=== PATIENT | male | born 1985 | race Caucasian/White ===

== ENCOUNTER 2021-01-12 09:05 | Outpatient (CLI) | payer BC, SELFPAY ==
--- NOTE | 2021-02-01 02:08 | WPDHOMESLEEP ---
Sleep Study - Home Unattended Date of Study: 01/12/21 Ordering Provider: Annia Pablo, DENTAL SECRETARY Interpreting Provider: Nancie Segundo MD Home Sleep Study Type: Apnea Link Air Height: 1.88 m Weight: 109.769 kg Body Mass Index: 31.0 Neck Circumference (inches): 16 [place]: 5 Reason for Sleep Study Hypersomnolence Sleep History Pillo Gibbs II is a 35 year old man with who snores loudly and gasps for air at night. He occasionally awakens from sleep feeling short of breath. He rarely awakens at night with heartburn, belching or coughing. He frequently snores and it is loud enough that others complain about it. He rarely has trouble sleep with a cold. He occasionally gasp for breath at night. He rarely sweats excessively at night or notices his heart pounding or beating irregularly night. He rarely falls asleep during the day, however never falls asleep involuntarily or while driving. He does not have loss of muscle tone with strong emotion. He occasionally has daytime difficulties due to excessive sleepiness. He does not feel paralyzed on waking or falling asleep. He rarely has vivid dreamlike scenes upon awakening or going to sleep. He is never afraid to go to sleep. He does not have nightmares. He occasionally remembers his dreams. He occasionally has racing thoughts. He rarely feels sad or depressed. He occasionally has anxiety. He rarely has muscular tension. He does not notice parts of his body jerking. He rarely kicks at night, rarely has crawling and aching feelings in his legs, rarely has any kind of leg pain at night. He occasionally has morning jaw pain. He does not grind his teeth during sleep. He rarely is bothered by pain during the day, rarely awakens with pain at night, rarely wakes up feeling stiff in the morning with sore achy muscles or pain in the spine. Normal bedtime is 10:00 p.m. falling asleep within 5-10 minutes waking 1-2 times at night to urinate or reposition and return to sleep. It takes about 5-10 minutes to return to sleep. He wakes the morning between 530 and 7:30 a.m.. His weekend schedule is similar, going to bed by 10:30 p.m. and waking by 8:00 a.m.. He estimates getting 6-8 hours of sleep at night. he does not take naps in the afternoon or evening. A short nap baby refreshing. He is drowsy in the morning for 1 hour or longer. He feels better in the evening compared to other times of day. Habits: Tobacco: never smoker. Caffeine: 1-2 a day. Alcohol: 1-4 per month. No recreational drugs. [facility] Past Medical History Medical History (Updated 02/01/21 @ 02:19 by Nancie Segundo MD) Acid reflux Anxiety Hypertension Rhinitis Surgical History Surgical History (Updated 02/01/21 @ 02:15 by Nancie Segundo MD) History of hernia surgery Social History Social History (Updated 02/01/21 @ 02:15 by Nancie Segundo MD) Smoking status: Never smoker Drinks per week: 1 Alcohol use details: 1-4 drinks a month Substance use: never Substance use type: does not use Medications Medications: lisinopril, bupropion, omeprazole, sertraline, fluticasone, Claritin Sleep Procedure This test was performed using 4 channel monitoring including respiratory effort channel, snoring channel, heart rate channel, and oxygen saturation channel. This study was scored using [facility] guidelines. Sleep Architecture Not applicable for home sleep test. Respiratory Analysis The recording duration is 8 hours 57 minutes. Evaluation duration 8 hours 45 minutes. Apnea-hypopnea index is 4.2 normal. He had 10 apneas. He had 4 obstructive apneas, 40% of the total, 6 central apnea 60% of the total, 27 hypopneas, no evidence of Lew-Sandoval respirations. Oximetry Data Oxygen desaturation index is 3.3. Average saturation normal 96%. Lowest desaturation 92%. There were 29 desaturations. No time with was spent below 88%. Snoring Profile Snoring was minimal 132 episodes. Cardiac Prof
[2021-02-01 02:24] VITALS: BMI 31.0
== END 2021-01-13 13:55 | disposition home or self-care (01) ==
LOC: ANHCSM 09:10
PROVIDERS: Visit Provider Family Medicine
DX: G47.10 Hypersomnia, unspecified (principal); R06.83 Snoring; Z68.31 Body mass index [BMI] 31.0-31.9, adult
CPT/HCPCS: 95806

== ENCOUNTER 2022-07-05 16:43 | Emergency (ER) | payer BC, SELFPAY ==
[2022-07-05 17:15] VITALS: BP 149/94; PULSE 99; RESP 20; TEMP 36.3; O2SAT 100
--- NOTE | 2022-07-05 17:22 | ED.URI ---
HPI - URI/Sore Throat General Chief Complaint: Upper Respiratory Infection Stated Complaint: sorethroat,neck pain Time Seen by Provider: 07/05/22 17:22 Source: patient Mode of arrival: ambulatory Limitations: no limitations History of Present Illness HPI Narrative: 37-year-old male presents with complaint of sore throat, posterior neck pain, fatigue, headache for 2-3 days. Afebrile. Denies nausea vomiting diarrhea. All systems reviewed and negative except as noted above. Related Data Home Medications Medication Instructions Recorded Confirmed bupropion HCl 300 mg 24 hr tablet, 300 mg PO DAILY 07/05/22 07/05/22 extended release lisinopril 10 mg tablet 10 mg PO DAILY 07/05/22 07/05/22 losartan 50 mg tablet 50 mg PO DAILY 07/05/22 07/05/22 omeprazole 20 mg capsule,delayed 20 mg PO DAILY 07/05/22 07/05/22 release Allergies Allergy/AdvReac Type Severity Reaction Status Date / Time No Known Allergies Allergy Mild Verified 07/05/22 17:23 Review of Systems Review of Systems: CONSTITUTIONAL: Denies fever, chills, or sweats. reports fatigue. EYES: Denies visual changes, redness, or discharge. ENT: Denies rhinorrhea, congestion . Reports sore throat. Denies otalgia. CARDIOVASCULAR: Denies chest pain, palpitations, or edema. RESPIRATORY: Denies cough or dyspnea. GASTROINTESTINAL: Denies abdominal pain, nausea, vomiting, or diarrhea. GENITOURINARY: Denies dysuria or hematuria. SKIN: Denies rash or itching. MUSCULOSKELETAL: Denies back pain, joint pain, or myalgia. NEUROLOGIC: Reports headache. Denies numbness, or weakness. PSYCHIATRIC: Denies anxiety or depression. All other systems reviewed are negative, except as documented in HPI. [facility] Past Medical History Medical History (Updated 07/05/22 @ 18:05 by Richelle Ascencio NP) Acid reflux Anxiety Hypertension Rhinitis Surgical History Surgical History (Updated 02/01/21 @ 02:15 by Nancie Segundo MD) History of hernia surgery Social History Social History (Updated 02/01/21 @ 02:15 by Nancie Segundo MD) Smoking status: Never smoker Drinks per week: 1 Alcohol use details: 1-4 drinks a month Substance use: never Substance use type: does not use Comments At time of signature, agree with nursing past medical, surgical, social and family history. There is no relevant family history pertinent to the presenting complaint. Exam Narrative: GENERAL: This is a well-nourished, well-developed patient, in no apparent distress. HEAD: normocephalic, atraumatic. EYES: PERRL. Sclera clear/white. Vision is grossly intact. EARS: External ears normal, auditory canals clear and without drainage, TMs normal without perforation. Hearing grossly intact. NOSE: External nose normal with no obvious nasal discharge, nares without redness, no rhinorrhea. THROAT: Mucous membranes moist, mild erythema to posterior pharynx. NECK: Neck supple, non-tender without lymphadenopathy, masses or thyromegaly. CARDIOVASCULAR: Regular rate and rhythm without murmurs, gallops, or rubs. RESPIRATORY: Clear to auscultation. Breath sounds equal bilaterally. No wheezes, rales, or rhonchi. SKIN: warm, Dry, intact with no suspicious lesions or rash, good texture and turgor. NEURO: awake, alert, and oriented to person, place and time. There were no obvious focal neurologic abnormalities. EXTREMITIES: No joint tenderness, effusion, or edema noted. Course Course Level of Care: Express Care Visit Vital Signs Vital signs: Vital Signs Temperature 36.3 C L 07/05/22 17:15 Pulse Rate 99 07/05/22 17:15 Respiratory Rate 07/05/22 17:15 Blood Pressure 149/94 H 07/05/22 17:15 Pulse Oximetry 100 07/05/22 17:15 Oxygen Delivery Room Air 07/05/22 17:15 Temperature 36.3 C L 07/05/22 17:15 Pulse Rate 99 07/05/22 17:15 Respiratory Rate 07/05/22 17:15 Blood Pressure 149/94 H 07/05/22 17:15 Pulse Oximetry 100 07/05/22 17:15 Oxygen Delivery R
== END 2022-07-05 18:08 | disposition home or self-care (01) ==
PROVIDERS: Emergency Provider Nurse Practitioner Family
DX: J02.9 Acute pharyngitis, unspecified (principal); Z20.822 Contact with and (suspected) exposure to COVID-19; I10 Essential (primary) hypertension; F41.9 Anxiety disorder, unspecified; K21.9 Gastro-esophageal reflux disease without esophagitis
CPT/HCPCS: 87081; 87426; 87880; 99213; C9803; G0463

== ENCOUNTER 2024-02-15 19:51 | Emergency (ER) | payer OTHER, SELFPAY ==
[2024-02-15 19:52] VITALS: BP 143/81; PULSE 115; RESP 18; TEMP 36.7; O2SAT 98
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
[2024-02-15] MEDS: ACETAMINOPHEN 500 MG TABLET 1000 MG PO (21:07)
[2024-02-15] MEDS: IBUPROFEN 600 MG TABLET PO (21:08)
[2024-02-15 21:33] VITALS: BP 140/88; PULSE 94; RESP 20; O2SAT 100
== END 2024-02-15 21:29 | disposition home or self-care (01) ==
PROVIDERS: Emergency Provider Registered Nurse; PCP Physician Assistant
DX: S01.01XA Laceration without foreign body of scalp, initial encounter (principal); K21.9 Gastro-esophageal reflux disease without esophagitis; F41.9 Anxiety disorder, unspecified; I10 Essential (primary) hypertension; W22.09XA Striking against other stationary object, initial encounter
CPT/HCPCS: 99282; A9270